=== PATIENT | female | born 1930 | race Two or more races ===

== ENCOUNTER 2016-11-02 09:24 | Emergency (ER) | payer MEDICAID ==
[~2016-11-02] VITALS: Ht 154.9 cm; Wt 59.0 kg
[~2016-11-02 09:24] MED LIST: AMLODIPINE BES2.5 MG ORAL; ANTIVERT25 MG ORAL; ASPIR 8181 MG ORAL; GLIMEPIRIDE1 MG ORAL; GLIPIZIDE10 MG PO; GLIPIZIDE5 MG ORAL; GLUCOPHAGE1000 MG ORAL; LEVAQUIN750 MG ORAL; LISINOPRIL5 MG ORAL; NORCO 5-325 TA1 EACH ORAL; OMEPRAZOLE20 M2 ORAL; RANITIDINE HCL150 MG ORAL; SIMVASTATIN20 MG ORAL; UNOBMED; ZOFRAN4 M1 ORAL
[2016-11-02 10:30] VITALS: BP 127/55
[2016-11-02 10:38] LABS: BASOPHILS % (AUTO) 0.6 % (0.0-2.0); EOSINOPHILS % (AUTO) 0.7 % (0.0-3.0); MEAN CORPUSCULAR HEMOGLOBIN 28.8 PG (27.0-31.0); MEAN CORPUSCULAR HGB CONC 32.6 G/DL (32.0-36.0); MEAN CORPUSCULAR VOLUME 88 FL (80-99); MEAN PLATELET VOLUME 9.9 FL (6.5-10.1); MONOCYTES % (AUTO) 9.2 % (1.0-10.0); NEUTROPHILS % (AUTO) 54.5 % (45.0-75.0); PLATELET COUNT 156 K/UL (150-450); RED BLOOD COUNT 5.22 M/UL (4.20-5.40); RED CELL DISTRIBUTION WIDTH 12.4 % (11.6-14.8); WHITE BLOOD COUNT 7.2 K/UL (4.8-10.8)
[2016-11-02 11:05] LABS: TROPONIN I < 0.30 ng/mL (<=0.30)
[2016-11-02 11:10] LABS: ALANINE AMINOTRANSFERASE 25 U/L (3-33); ALBUMIN/GLOBULIN RATIO 1.4 (1.0-2.7); ANION GAP 17 (5-15); ASPARTATE AMINO TRANSFERASE 28 U/L (5-40); CALCIUM 9.5 mg/dL (8.6-10.2); CARBON DIOXIDE 23 mEQ/L (20-30); CHLORIDE 101 mEQ/L (98-107); CREATININE 0.8 mg/dL (0.5-0.9); HEMOLYSIS 20; MAGNESIUM 1.8 mg/dL (1.7-2.5); POTASSIUM 4.1 mEQ/L (3.4-4.9); SODIUM 141 mEQ/L (135-145); TOTAL PROTEIN 7.1 g/dL (6.6-8.7)
[2016-11-02 11:21] LABS: CKMB 1.8 ng/mL (< 3.8)
[2016-11-02 11:30] VITALS: BP 139/55
[2016-11-02 12:00] VITALS: BP 127/54
[2016-11-02 12:10] LABS: APPEARANCE,URINE CLEAR; KETONES,URINE NEGATIVE (NEGATIVE); LEUKOCYTE ESTERASE ,URINE 1+ (NEGATIVE); NITRITE,URINE NEGATIVE (NEGATIVE); PH,URINE 6 (4.5-8.0); PROTEIN,URINE NEGATIVE (NEGATIVE); UROBILINOGEN,URINE NORMAL MG/DL (0.0-1.0)
--- NOTE | 2016-11-02 12:18 | Diagnostic Imaging Report ---
Indication: Chest Pain Comparison: None A single view chest radiograph was obtained. Findings: Lungs are clear. Heart is mildly enlarged. Aorta is ectatic and calcified. Bones are osteopenic. Impression: No acute disease
[2016-11-02 12:21] LABS: BACTERIA,URINE OCCASIONAL /HPF; RBC,URINE 0-2 /HPF (0 - 2); SQUAMOUS EPITHELIAL CELL,UR FEW /LPF (NONE/OCC)
[2016-11-02 13:00] VITALS: BP 146/54
[2016-11-02] MEDS ORDERED: Lidocaine 1% MPF 10mg/ml 5ml IM ONE (14:15)
--- NOTE | 2016-11-02 14:55 | Emergency Room Report ---
History of Present Illness General Chief Complaint: General Complaint Source: Patient Present Illness HPI This patient is accompanied by her son. She complains of nausea vomiting and diarrhea for the past day. She also feels lightheaded. She also complains of pain around her left great toe-nail. She denies abdominal pain. She denies chest pain or shortness of breath. She denies fall. She denies dysuria or hematuria. She has no other complaints. Allergies: Coded Allergies: No Known Allergies (Unverified , 06/24/13) Patient History Past Medical History: see triage record, DM, HTN, other - HLP Social History: Denies: alcohol use, drug use, smoking Reviewed Nursing Documentation: PMH: Agreed, PSxH: Agreed Nursing Documentation-PMH Past Medical History: No History, Except For Hx Cardiac Problems: Yes Hx Hypertension: Yes Hx Diabetes: Yes Hx Cancer: No Hx Gastrointestinal Problems: No Hx Neurological Problems: No Hx Peripheral Neuropathy: Yes - Diabetic Review of Systems All Other Systems: negative except mentioned in HPI Physical Exam Vital Signs Date Time Temp Pulse Resp B/P Pulse Ox O2 Delivery O2 Flow Rate FiO2 11/02/16 09:37 98.1 66 18 160/64 96 Room Air Sp02 EP Interpretation: reviewed, normal General Appearance: no apparent distress, alert, GCS 15, non-toxic Head: normocephalic, atraumatic Eyes: bilateral eye PERRL, bilateral eye normal inspection ENT: hearing grossly normal, normal pharynx, no angioedema, normal voice Neck: full range of motion, supple/symm/no masses Respiratory: chest non-tender, lungs clear, normal breath sounds, speaking full sentences Cardiovascular #1: regular rate, rhythm, no edema Gastrointestinal: normal bowel sounds, non tender, soft, non-distended, no guarding, no rebound Rectal: deferred Musculoskeletal: back normal, normal range of motion, other - Mild erythema around the left great toenail medially and proximally. There is a small amount of fluctuance. The area is tender to palpation. Neurologic: alert, oriented x3, responsive, motor strength/tone normal, sensory intact, speech normal Psychiatric: judgement/insight normal, memory normal, mood/affect normal, no suicidal/homicidal ideation Skin: normal color, no rash, warm/dry, well hydrated Procedures Additional Procedure Procedure Narrative Left great toenail partial removal: A digital block was performed with 1% lidocaine. The medial one fourth of the toenail was removed in the typical fashion. There was some purulence expressed from the medial uncal fold. The wound was dressed. There were no complications. Medical Decision Making Diagnostic Impression: Primary Impression: Nausea & vomiting Additional Impressions: Diarrhea Ingrown toenail Paronychia ER Course This patient presents with nausea, vomiting and diarrhea consistent with a gastroenteritis. The patient had no episodes here in the emergency department. She also found to have an in grown toe nail and a left great toe with an associated paronychia. See my procedure note. I will also place the patient on a course of antibiotics. I will give the patient Zofran for nausea. At this time, the patient is well appearing and nontoxic. She's had no nausea, vomiting or diarrhea during her ED course. Patient is accompanied by her son who can watch her closely. At this time I did not identify an emergency medical condition. The patient's given return precautions and followup instructions. Labs Test 11/02/16 10:05 11/02/16 11:30 White Blood Count 7.2 K/UL (4.8-10.8) Red Blood Count 5.22 M/UL (4.20-5.40) Hemoglobin 15.1 G/DL (12.0-16.0) Hematocrit 46.2 % (37.0-47.0) Mean Corpuscular Volume 88 FL (80-99) Mean Corpuscular Hemoglobin 28.8 PG (27.0-31.0) Mean Corpuscular Hemoglobin Concent 32.6 G/DL (32.0-36.0) Red Cell Distribution Width 12.4 % (11.6-14.8) Platelet Count 156 K/UL (150-450) Mean Platelet Volume 9.9 FL (6.5-10.1) Neutrophils (%) (Auto) 54.5 % (45.0-75.0) Lymphocytes (%) (Auto) 35.0 % (20.0-45.0) Monocytes (%) (Auto) 9.2 % (1.0-10.0) Eosinophils (%) (Auto) 0.7 % (0.0-3.0) Basophils (%) (Auto) 0.6 % (0.0-2.0) Sodium Level 141 mEQ/L (135-145) Potassium Level 4.1 mEQ/L (3.4-4.9) Chloride Level 101 mEQ/L (98-107) Carbon Dioxide Level 23 mEQ/L (20-30) Anion Gap 17 (5-15) Blood Urea Nitrogen 16 mg/dL (7-23) Creatinine 0.8 mg/dL (0.5-0.9) Estimat Glomerular Filtration Rate mL/min (>60) Glucose Level 223 mg/dL (74-106) Lactic Acid Level 1.40 mmol/L (0.66-2.22) Calcium Level 9.5 mg/dL (8.6-10.2) Magnesium Level 1.8 mg/dL (1.7-2.5) Total Bilirubin 0.5 mg/dL (0.0-1.2) Aspartate Amino Transf (AST/SGOT) 28 U/L (5-40) Alanine Aminotransferase (ALT/SGPT) 25 U/L (3-33) Alkaline Phosphatase 83 U/L (35-104) Total Creatine Kinase 79 U/L (26-140) Creatine Kinase MB 1.8 ng/mL (< 3.8) Creatine Kinase MB Relative Index 2.2 Troponin I < 0.30 ng/mL (<=0.30) Total Protein 7.1 g/dL (6.6-8.7) Albumin 4.2 g/dL (3.5-5.2) Globulin 2.9 g/dL Albumin/Globulin Ratio 1.4 (1.0-2.7) Urine Color Pale yellow Urine Appearance Clear Urine pH 6 (4.5-8.0) Urine Specific [place] 1.005 (1.005-1.035) Urine Protein Negative (NEGATIVE) Urine Glucose (UA) 2+ (NEGATIVE) Urine Ketones Negative (NEGATIVE) Urine Occult Blood Negative (NEGATIVE) Urine Nitrite Negative (NEGATIVE) Urine Bilirubin Negative (NEGATIVE) Urine Urobilinogen Normal MG/DL (0.0-1.0) Urine Leukocyte Esterase 1+ (NEGATIVE) Urine RBC 0-2 /HPF (0 - 2) Urine WBC 2-4 /HPF (0 - 2) Urine Squamous Epithelial Cells Few /LPF (NONE/OCC) Urine Bacteria Occasional /HPF (NONE) EKG Diagnostic Results Rate: normal Rhythm: NSR ST Segments: no acute changes Rhythm Strip Diag. Results EP Interpretation: yes Rate: 60's Rhythm: NSR, no PVC's, no ectopy Last Vital Signs Date Time Temp Pulse Resp B/P Pulse Ox O2 Delivery O2 Flow Rate FiO2 11/02/16 13:00 64 16 146/54 96 11/02/16 12:00 Room Air 11/02/16 09:37 98.1 Status: improved Disposition: HOME, SELF-CARE Condition: Improved Referrals: NON PHYSICIAN (PCP) ANNMARIE MARINELLI D.O. November 02, 2016 14:55
[2016-11-02] MEDS ORDERED: KEFLEX500 MG ORAL (14:56)
[2016-11-02] MEDS ORDERED: ZOFRAN ODT4 MG ORAL (14:56)
[2016-11-02 15:17] VITALS: BP 144/90
== END 2016-11-02 15:19 | disposition home or self-care (01) ==
LOC: EMR 10:23
DX: R11.2 Nausea with vomiting, unspecified (principal); R19.7 Diarrhea, unspecified; L60.0 Ingrowing nail; L03.032 Cellulitis of left toe; R42 Dizziness and giddiness; M79.675 Pain in left toe(s); I10 Essential (primary) hypertension; E78.5 Hyperlipidemia, unspecified; E11.42 Type 2 diabetes mellitus with diabetic polyneuropathy
CPT/HCPCS: 11750; 36415; 71010; 80053; 81003; 82550; 82553; 83605; 83735; 84484; 85025; 87040; 93005; 96372; 96374; 99284; Z7502

== ENCOUNTER 2017-01-11 10:44 | Inpatient (IN) | payer MEDICAID ==
[~2017-01-11] VITALS: Ht 152.4 cm; Wt 50.3 kg
[~2017-01-11 10:44] MED LIST changes: +KEFLEX500 MG ORAL; +ZOFRAN ODT4 MG ORAL
[2017-01-11 12:17] LABS: BASOPHILS % (AUTO) 1.1 % (0.0-2.0); EOSINOPHILS % (AUTO) 1.4 % (0.0-3.0); LYMPHOCYTES % (AUTO) 38.2 % (20.0-45.0); MEAN CORPUSCULAR HEMOGLOBIN 29.8 PG (27.0-31.0); MEAN CORPUSCULAR HGB CONC 32.5 G/DL (32.0-36.0); MEAN CORPUSCULAR VOLUME 92 FL (80-99); MEAN PLATELET VOLUME 8.9 FL (6.5-10.1); MONOCYTES % (AUTO) 8.8 % (1.0-10.0); NEUTROPHILS % (AUTO) 50.5 % (45.0-75.0); PLATELET COUNT 187 K/UL (150-450); RED BLOOD COUNT 5.16 M/UL (4.20-5.40); RED CELL DISTRIBUTION WIDTH 12.3 % (11.6-14.8); WHITE BLOOD COUNT 8.1 K/UL (4.8-10.8)
--- NOTE | 2017-01-11 12:19 | Diagnostic Imaging Report ---
Indication: SOB Technique: One view of the chest Comparison: 11/02/2016 Findings: There are bilateral basilar atelectatic changes. Lungs and pleural spaces otherwise clear. Heart size is normal. Aorta is calcified. There is no significant interim change Impression: No acute process
[2017-01-11 12:30] LABS: TROPONIN I < 0.30 ng/mL (<=0.30)
[2017-01-11 12:31] LABS: ALANINE AMINOTRANSFERASE 18 U/L (3-33); ALBUMIN/GLOBULIN RATIO 1.5 (1.0-2.7); ANION GAP 13 (5-15); ASPARTATE AMINO TRANSFERASE 19 U/L (5-40); CALCIUM 9.7 mg/dL (8.6-10.2); CARBON DIOXIDE 20 mEQ/L (20-30); CHLORIDE 101 mEQ/L (98-107); CREATININE 1.1 mg/dL (0.5-0.9); HEMOLYSIS 7; LIPASE 48 U/L (< 60); POTASSIUM 4.3 mEQ/L (3.4-4.9); SODIUM 134 mEQ/L (135-145); TOTAL PROTEIN 7.5 g/dL (6.6-8.7)
[2017-01-11 12:34] LABS: REFLEX LACTIC ACID YES OR NO YES
[2017-01-11 12:36] LABS: APPEARANCE,URINE CLEAR; KETONES,URINE NEGATIVE (NEGATIVE); LEUKOCYTE ESTERASE ,URINE NEGATIVE (NEGATIVE); NITRITE,URINE NEGATIVE (NEGATIVE); PH,URINE 6 (4.5-8.0); PROTEIN,URINE NEGATIVE (NEGATIVE); UROBILINOGEN,URINE NORMAL MG/DL (0.0-1.0)
[2017-01-11 12:42] LABS: CKMB 2.8 ng/mL (< 3.8)
[2017-01-11 12:44] VITALS: BP 138/56
[2017-01-11] MEDS ORDERED: Ampicillin/Sulbactam Sod 3 GM in NS 110 ML IVPB ONE (12:45)
--- NOTE | 2017-01-11 12:54 | Emergency Room Report ---
History of Present Illness General Chief Complaint: General Complaint Source: Patient, Family Member Present Illness HPI Patient is 86-year-old female who presented after increased headache in generalized body aches. This reported having increased chest discomfort. She reported having gradual onset of symptoms. Patient noted to have recently been treated for a urinary tract infection with oral Bactrim. She reports having increased vulvar itching and pain. She denies any discharge. She reports having prior history of diabetes. Allergies: Coded Allergies: No Known Allergies (Unverified , 06/24/13) Patient History Past Medical History: see triage record Now: No Reviewed Nursing Documentation: PMH: Agreed, PSxH: Agreed Nursing Documentation-PMH Past Medical History: No History, Except For Hx Cardiac Problems: Yes Hx Hypertension: Yes Hx Diabetes: Yes Hx Cancer: No Hx Gastrointestinal Problems: No Hx Neurological Problems: No Hx Peripheral Neuropathy: Yes - Diabetic Review of Systems All Other Systems: negative except mentioned in HPI Physical Exam Vital Signs Date Time Temp Pulse Resp B/P Pulse Ox O2 Delivery O2 Flow Rate FiO2 01/11/17 10:46 98.2 79 18 134/72 99 Room Air Sp02 EP Interpretation: reviewed, normal General Appearance: normal inspection, well appearing, no apparent distress, alert, GCS 15 Head: atraumatic ENT: normal ENT inspection, hearing grossly normal, normal voice Neck: normal inspection, full range of motion, supple, no bony tend Respiratory: normal inspection, lungs clear, normal breath sounds, no respiratory distress, no retraction, no wheezing Cardiovascular #1: regular rate, rhythm, no edema Gastrointestinal: normal inspection, normal bowel sounds, non tender, soft, no guarding, no hernia Genitourinary: no CVA tenderness, ext genitalia/vag normal - vulvar atrophy, slight erythema, no exudate Musculoskeletal: normal inspection, back normal, normal range of motion Neurologic: normal inspection, alert, responsive, speech normal Psychiatric: normal inspection, judgement/insight normal, mood/affect normal Skin: normal inspection, normal color, no rash Medical Decision Making Diagnostic Impression: Primary Impression: ACS (acute coronary syndrome) Additional Impressions: Vaginitis Lactic acidosis ER Course Patient presented for dysuria. Differential diagnosis included was not limited to appendicitis, urinary tract infection, pelvic inflammatory disease, urethritis, herpes among others.Because of complexity of patient's case laboratory testing were ordered.Laboratory testing was notable for elevated lactic acid level.Dr. Bonilla was contacted for inpatient management due to complexity of medical condition. Laboratory Tests Test 01/11/17 10:51 01/11/17 11:40 01/11/17 13:05 01/12/17 08:15 Urine Color Pale yellow Urine Appearance Clear Urine pH 6 (4.5-8.0) Urine Specific [place] 1.020 (1.005-1.035) Urine Protein Negative (NEGATIVE) Urine Glucose (UA) 4+ (NEGATIVE) H Urine Ketones Negative (NEGATIVE) Urine Occult Blood Negative (NEGATIVE) Urine Nitrite Negative (NEGATIVE) Urine Bilirubin Negative (NEGATIVE) Urine Urobilinogen Normal MG/DL (0.0-1.0) Urine Leukocyte Esterase Negative (NEGATIVE) White Blood Count 8.1 K/UL (4.8-10.8) 7.0 K/UL (4.8-10.8) Red Blood Count 5.16 M/UL (4.20-5.40) 4.80 M/UL (4.20-5.40) Hemoglobin 15.4 G/DL (12.0-16.0) 14.8 G/DL (12.0-16.0) Hematocrit 47.4 % (37.0-47.0) H 43.8 % (37.0-47.0) Mean Corpuscular Volume 92 FL (80-99) 91 FL (80-99) Mean Corpuscular Hemoglobin 29.8 PG (27.0-31.0) 30.9 PG (27.0-31.0) Mean Corpuscular Hemoglobin Concent 32.5 G/DL (32.0-36.0) 33.8 G/DL (32.0-36.0) Red Cell Distribution Width 12.3 % (11.6-14.8) 12.7 % (11.6-14.8) Platelet Count 187 K/UL (150-450) 169 K/UL (150-450) Mean Platelet Volume 8.9 FL (6.5-10.1) 8.4 FL (6.5-10.1) Neutrophils (%) (Auto) 50.5 % (45.0-75.0) 35.6 % (45.0-75.0) L Lymphocytes (%) (Auto) 38.2 % (20.0-45.0) 49.2 % (20.0-45.0) H Monocytes (%) (Auto) 8.8 % (1.0-10.0) 10.6 % (1.0-10.0) H Eosinophils (%) (Auto) 1.4 % (0.0-3.0) 3.5 % (0.0-3.0) H Basophils (%) (Auto) 1.1 % (0.0-2.0) 1.1 % (0.0-2.0) Sodium Level 134 mEQ/L (135-145) L Potassium Level 4.3 mEQ/L (3.4-4.9) Chloride Level 101 mEQ/L (98-107) Carbon Dioxide Level 20 mEQ/L (20-30) Anion Gap 13 (5-15) Blood Urea Nitrogen 20 mg/dL (7-23) Creatinine 1.1 mg/dL (0.5-0.9) H Estimate Glomerular Filtration Rate mL/min (>60) Glucose Level 334 mg/dL (74-106) H Lactic Acid Level 2.30 mmol/L (0.66-2.22) H 2.10 mmol/L (0.66-2.22) Calcium Level 9.7 mg/dL (8.6-10.2) Total Bilirubin 0.4 mg/dL (0.0-1.2) Aspartate Amino Transferase (AST) 19 U/L (5-40) Alanine Aminotransferase (ALT) 18 U/L (3-33) Alkaline Phosphatase 89 U/L (35-104) Total Creatine Kinase 96 U/L (26-140) Creatine Kinase MB 2.8 ng/mL (< 3.8) Creatine Kinase MB Relative Index 2.9 Troponin I < 0.30 ng/mL (<=0.30) Pro-B-Type Natriuretic Peptide 142 pg/mL (0-450) Total Protein 7.5 g/dL (6.6-8.7) Albumin 4.5 g/dL (3.5-5.2) Globulin 3.0 g/dL Albumin/Globulin Ratio 1.5 (1.0-2.7) Lipase 48 U/L (< 60) Prothrombin Time 10.3 SEC (9.30-11.50) Prothrombin Time INR 1.0 (0.9-1.1) PTT 30 SEC (23-33) C-Reactive Protein, Quantitative < 0.3 mg/dL (< 0.5) Triglycerides Level 265 mg/dL (< 150) H Cholesterol Level 194 mg/dL (< 200) LDL Cholesterol 106 mg/dL (60-99) H HDL Cholesterol 35 mg/dL (> 60) Cholesterol/HDL Ratio 5.5 (3.3-4.4) H Thyroid Stimulating Hormone (TSH) 1.950 uIU/mL (0.300-4.500) Last Vital Signs Date Time Temp Pulse Resp B/P Pulse Ox O2 Delivery O2 Flow Rate FiO2 01/11/17 12:44 98.2 75 19 138/56 98 Room Air Status: unchanged Disposition: ADMITTED INPATIENT Condition: Serious Scripts Sitagliptin (Januvia) 50 Mg Tablet 50 MG ORAL DAILY for 30 Days, TAB Prov: KELSEY BONILLA 01/12/17 Referrals: NOT CHOSEN IPA/,REFERRING (PCP) Michael Soliz Jan 11, 2017 12:54
[2017-01-11] MEDS ORDERED: Unasyn 3gm Inj ONE (12:55)
[2017-01-11] MEDS ORDERED: Miralax 17gm pkt ORAL PRN (14:45)
[2017-01-11] MEDS ORDERED: Enalaprilat 2.5mg/2ml Inj IV PRN (14:45)
[2017-01-11] MEDS ORDERED: Nitroglycerin Subl 0.4mg tab (Bottle Of 25) SL PRN (14:45)
[2017-01-11] MEDS ORDERED: DuoNeb 0.5-3(2.5)mg/3ml neb HHN PRN (14:45)
[2017-01-11] MEDS ORDERED: Ketorolac 30mg Inj IV PRN (14:45)
[2017-01-11] MEDS ORDERED: Diltiazem 25mg/5ml IV PRN (14:45)
[2017-01-11] MEDS ORDERED: Morphine Sulfate 2mg/ml Inj IVP PRN (14:45)
[2017-01-11] MEDS ORDERED: UNOBMED (14:58)
[2017-01-11 15:06] VITALS: BP 155/49
[2017-01-11] MEDS: Aspirin Baby 81mg ORAL SCH (15:56)
[2017-01-11 17:00] VITALS: BP 115/40
[2017-01-11] MEDS ORDERED: cefTRIAXone 1 GM in NS 55 ML IVPB SCH (18:00)
[2017-01-11 19:21] VITALS: BP 140/41
[2017-01-11 20:00] VITALS: BP 131/62
[2017-01-11] MEDS: NovoLOG Insulin Flexpen SUBQ SCH (21:08)
[2017-01-11] MEDS: Heparin 5000 units/ml inj SUBQ SCH (22:01)
[2017-01-11 23:56] VITALS: BP 124/53
[2017-01-12 03:58] VITALS: BP 123/52
[2017-01-12] MEDS: Heparin 5000 units/ml inj SUBQ SCH (06:23)
[2017-01-12] MEDS: NovoLOG Insulin Flexpen SUBQ SCH ×2 (06:24→11:59)
[2017-01-12 08:00] VITALS: BP 132/68
[2017-01-12] MEDS: Aspirin Baby 81mg ORAL SCH (08:46)
[2017-01-12 08:50] LABS: BASOPHILS % (AUTO) 1.1 % (0.0-2.0); EOSINOPHILS % (AUTO) 3.5 % (0.0-3.0); LYMPHOCYTES % (AUTO) 49.2 % (20.0-45.0); MEAN CORPUSCULAR HEMOGLOBIN 30.9 PG (27.0-31.0); MEAN CORPUSCULAR HGB CONC 33.8 G/DL (32.0-36.0); MEAN CORPUSCULAR VOLUME 91 FL (80-99); MEAN PLATELET VOLUME 8.4 FL (6.5-10.1); MONOCYTES % (AUTO) 10.6 % (1.0-10.0); NEUTROPHILS % (AUTO) 35.6 % (45.0-75.0); PLATELET COUNT 169 K/UL (150-450); RED CELL DISTRIBUTION WIDTH 12.7 % (11.6-14.8)
[2017-01-12 08:55] LABS: CHOLESTEROL 194 mg/dL (< 200); CHOLESTEROL/HDL RATIO 5.5 (3.3-4.4); CRP QUANT < 0.3 mg/dL (< 0.5); HEMOLYSIS 8; LDL CHOLESTEROL (CALC.) 106 mg/dL (60-99)
[2017-01-12] MEDS ORDERED: Aspirin EC 81mg tab ORAL SCH (09:00)
[2017-01-12] MEDS ORDERED: Lisinopril 10mg tab ORAL SCH (09:00)
[2017-01-12 09:36] LABS: PROTHROMBIN TIME 10.3 SEC (9.30-11.50)
[2017-01-12 12:00] VITALS: BP 108/52
[2017-01-12] MEDS ORDERED: JANUVIA50 MG ORAL (13:11)
--- NOTE | 2017-01-12 13:17 | History and Physical ---
History of Present Illness General Date patient seen: Jan 12, 2017 Reason for Hospitalization: General Complaint Present Illness HPI 86-year-old female with hx of DM, HTN presented after increased headache in generalized body aches. She reported having gradual onset of symptoms. She reports having increased vulvar itching and pain. She denies any discharge. she had a severe headache and contributed it to her high blood pressure. Allergies: Coded Allergies: No Known Allergies (Unverified , 06/24/13) Medication History Scheduled Aspirin* (Aspir 81*), 81 MG ORAL DAILY, (Reported) Cephalexin* (Keflex*), 500 MG ORAL Q6H Glimepiride* (Glimepiride*), 2 MG ORAL DAILY, (Reported) Glipizide (Glipizide), 10 MG PO ACBREAKFAST, (Reported) Lisinopril (Lisinopril*), 10 MG ORAL DAILY, (Reported) Scheduled PRN Ondansetron Odt* (Zofran Odt*), 4 MG ORAL Q6H PRN for Nausea & Vomiting Miscellaneous Medications Unable to Obtain Medications (Unable To Obtain Meds), (Reported) Patient History Healthcare decision maker Resuscitation status Full Code Advanced Directive on File Past Medical/Surgical History Past Medical/Surgical History: (1) Diabetes mellitus (2) HTN (hypertension) Review of Systems Constitutional: Reports: no symptoms Genitourinary: Reports: dysuria, other - vaginal itching All Other Systems: negative except mentioned in HPI Physical Exam General Appearance: cachetic Lines, tubes and drains: peripheral, central line HEENT: normocephalic, anicteric Neck: non-tender, normal alignment Respiratory/Chest: chest wall non-tender, lungs clear Breasts: no masses Cardiovascular/Chest: normal rate Abdomen: normal bowel sounds, non tender Genitourinary/Rectal: normal genital exam, normal prostate exam Extremities: normal range of motion Last 24 Hour Vital Signs Date Time Temp Pulse Resp B/P Pulse Ox O2 Delivery O2 Flow Rate FiO2 01/12/17 12:00 97.8 60 21 108/52 95 Nasal Cannula 2.0 01/12/17 09:17 97.7 01/12/17 08:48 132/68 01/12/17 08:00 68 01/12/17 08:00 97.7 77 20 132/68 93 Room Air 01/12/17 04:00 87 01/12/17 03:58 98.6 68 19 123/52 95 Room Air 01/12/17 00:00 77 01/11/17 23:56 98.5 72 18 124/53 98 Room Air 01/11/17 22:01 78 01/11/17 20:00 98.2 66 19 131/62 98 Room Air 01/11/17 19:21 97.3 60 18 140/41 Room Air 01/11/17 19:12 69 01/11/17 18:34 76 19 149/63 97 Room Air 01/11/17 17:00 62 19 115/40 97 Room Air 01/11/17 15:06 98.1 65 18 155/49 97 Room Air Intake and Output 01/11/17 01/12/17 19:00 07:00 Intake Total 55 ml Balance 55 ml Intake IV Total 55 ml # Voids 1 3 # Bowel Movements 1 Laboratory Tests Test 01/12/17 08:15 White Blood Count 7.0 K/UL (4.8-10.8) Red Blood Count 4.80 M/UL (4.20-5.40) Hemoglobin 14.8 G/DL (12.0-16.0) Hematocrit 43.8 % (37.0-47.0) Mean Corpuscular Volume 91 FL (80-99) Mean Corpuscular Hemoglobin 30.9 PG (27.0-31.0) Mean Corpuscular Hemoglobin Concent 33.8 G/DL (32.0-36.0) Red Cell Distribution Width 12.7 % (11.6-14.8) Platelet Count 169 K/UL (150-450) Mean Platelet Volume 8.4 FL (6.5-10.1) Neutrophils (%) (Auto) 35.6 % (45.0-75.0) L Lymphocytes (%) (Auto) 49.2 % (20.0-45.0) H Monocytes (%) (Auto) 10.6 % (1.0-10.0) H Eosinophils (%) (Auto) 3.5 % (0.0-3.0) H Basophils (%) (Auto) 1.1 % (0.0-2.0) Prothrombin Time 10.3 SEC (9.30-11.50) Prothromb Time International Ratio 1.0 (0.9-1.1) Activated Partial Thromboplast Time 30 SEC (23-33) C-Reactive Protein, Quantitative < 0.3 mg/dL (< 0.5) Triglycerides Level 265 mg/dL (< 150) H Cholesterol Level 194 mg/dL (< 200) LDL Cholesterol 106 mg/dL (60-99) H HDL Cholesterol 35 mg/dL (> 60) Cholesterol/HDL Ratio 5.5 (3.3-4.4) H Thyroid Stimulating Hormone (TSH) 1.950 uIU/mL (0.300-4.500) Height (Feet): 5 Height (Inches): 0.00 Weight (Pounds): 111 Medications Current Medications Medications (Trade) Dose Ordered Sig/Mickey Route PRN Reason Start Time Stop Time Status Last Admin Dose Admin Albuterol/ Ipratropium (DuoNeb 0.5-3(2.5)mg/3ml) 3 ml Q4H PRN HHN Shortness of Breath 01/11/17 14:45 01/16/17 14:44 Aspirin (ASA) 162 mg DAILY ORAL 01/11/17 16:00 02/10/17 15:59 01/12/17 08:46 Ceftriaxone Sodium/Sodium Chloride (Rocephin/Sodium Chloride) 55 ml @ 110 mls/hr Q24H IVPB 01/11/17 18:00 01/18/17 17:59 01/11/17 21:04 Dextrose (Dextrose 50%) STAT PRN IV Hypoglycemia 01/11/17 14:45 02/10/17 14:44 Diltiazem HCl (Cardizem) 10 mg Q1H PRN IV heart rate more than 120, 01/11/17 14:45 02/10/17 14:44 Enalaprilat (Vasotec) 2.5 mg Q6H PRN IV sbp more than 160 01/11/17 14:45 02/10/17 14:44 Heparin Sodium (Porcine) 5000 units 5,000 units EVERY 8 HOURS SUBQ 01/11/17 22:00 02/10/17 21:59 01/12/17 06:23 Insulin Aspart (NovoLOG) BEFORE MEALS AND HS SUBQ 01/11/17 21:00 02/10/17 20:59 01/12/17 11:59 Ketorolac Tromethamine (Toradol 30mg) 30 mg Q6H PRN IV moderate pain ( 4-6) 01/11/17 14:45 01/16/17 14:44 01/12/17 08:47 Lisinopril (Zestril) 10 mg DAILY ORAL 01/12/17 09:00 02/11/17 08:59 01/12/17 08:48 Morphine Sulfate (Morphine Sulfate) 2 mg Q4H PRN IVP severe Pain (Pain Scale 7-10) 01/11/17 14:45 01/18/17 14:44 Nitroglycerin (Ntg) 0.4 mg Q5M PRN SL Prn Chest Pain 01/11/17 14:45 02/10/17 14:44 Ondansetron HCl (Zofran) 4 mg Q6H PRN IVP Nausea & Vomiting 01/11/17 14:45 02/10/17 14:44 Pantoprazole (Protonix) 40 mg DAILY ORAL 01/12/17 09:00 02/11/17 08:59 01/12/17 08:46 Polyethylene Glycol (Miralax) 17 gm DAILYPRN PRN ORAL Constipation 01/11/17 14:45 02/10/17 14:44 Temazepam (Restoril) 15 mg HSPRN PRN ORAL Insomnia 01/11/17 14:45 01/18/17 14:44 Assessment/Plan Problem List: (1) HTN (hypertension) ICD Codes: I10 - HTN (hypertension) SNOMED: 26746257 (2) Vaginitis ICD Codes: N76.0 - Acute vaginitis SNOMED: 38762210 (3) Headache ICD Codes: R51 - Headache SNOMED: 59885276 (4) Diabetes mellitus ICD Codes: E11.9 - Diabetes mellitus SNOMED: 47862249 (5) Encounter for generalized patient complaints ICD Codes: Z00.8 - Encounter for other general examination SNOMED: 237809553 Assessment/Plan bp is better add justyn Miconozole vaginal applicator sliding scale KELSEY GIL Jan 12, 2017 13:17
[2017-01-12] MEDS ORDERED: Pneumococcal Vaccine 25mcg/0.5ml IM ONE (13:45)
[2017-01-12] MEDS ORDERED: NS 275ml ONE (14:19)
[2017-01-12] MEDS ORDERED: Tubing IV Secondary IV ONE (14:19)
[2017-01-12] MEDS ORDERED: Miconazole Vag Cr 45gm Tube VAGIN SCH (21:00)
[2017-01-15] MEDS ORDERED: MICONAZOLE 324 GM VG (11:00)
--- NOTE | 2017-01-15 11:01 | Discharge Summary ---
Discharge Summary Hospital Course Date of Admission Jan 11, 2017 at 13:58 Date of Discharge Jan 12, 2017 at 14:20 Admitting Diagnosis acs HPI Michael Ramires is a 86 year old female who was admitted on Jan 11, 2017 at 13:58 for Acute Coronary Syndrome Hospital Course dc summary #[id number] Discharge Medications New Medications: Miconazole Nitrate (Miconazole 3) 24 Gm Cmb.pf.crm 24 GM VG DAILY for 3 Days, #1 TUBE apply at HS for 3 days Sitagliptin (Januvia) 50 Mg Tablet 50 MG ORAL DAILY for 30 Days, TAB Continued Medications: Aspirin* (Aspir 81*) 81 Mg Tablet.dr 81 MG ORAL DAILY, TAB Glimepiride* (Glimepiride*) 1 Mg Tablet 2 MG ORAL DAILY, TAB Glipizide (Glipizide) 10 Mg Tablet 10 MG PO ACBREAKFAST, TAB Lisinopril (Lisinopril*) 5 Mg Tablet 10 MG ORAL DAILY, TAB Discharge Condition Upon Discharge: stable Discharge Disposition Patient was discharged to Home (01) Discharge Diagnoses: Discharge Instructions Discharge Instructions Special Instructions I have been assigned to complete a D/C Summary on this account. I was not involved in the patient management Lori Guerra NP ([place]) Jan 15, 2017 11:01
--- NOTE | 2017-01-15 23:16 | Discharge Summary 2 SIG ---
DATE OF ADMISSION: 01/11/2017 DATE OF DISCHARGE: 01/12/2017 BRIEF HOSPITAL COURSE: The patient is an 86-year-old female with a history of hypertension and diabetes, presented to emergency room with increased headache and generalized body aches. The patient also reported increased vulvar itching and pain in the area. She denied any discharge. She denied fever or chills. She also complained of severe headache, which she contributed to higher blood pressure. Blood pressure was initially slightly elevated in the emergency room. The patient was given her routine antihypertensive medication. Chest x-ray revealed no evidence of cardiopulmonary disease. Venous duplex of bilateral lower extremities was negative. Troponin was negative. Noted elevated lactic acid and recheck stable. The patient noted to have glucose of 334. The patient at home on Amaryl and glipizide. Januvia was added for better management of blood sugar. Lipid panel revealed elevated LDL of 106 and triglycerides of 265. The patient is on aspirin. The patient was recommended to low-fat low-cholesterol diabetic diet and check the lipid panel in three months. Urinalysis was negative. Headache was likely secondary to blood pressure. After blood pressure stabilized the headache stopped. The patient was started on miconazole vaginal cream, which to be continued upon discharge. Due to the rapid and unexpected improvement in patient's condition, the patient was discharged in one day. DISCHARGE DIAGNOSES: 1. Hypertension. 2. Diabetes. 3. Vaginitis. 4. Lactic acidosis. 5. Headache likely due to elevated hypertension. DISCHARGE MEDICATIONS: See medication reconciliation list. DISCHARGE INSTRUCTIONS: The patient was discharged home. Follow up with primary medical doctor. Stan Bonilla M.D. I have been assigned to dictate discharge summary on this account and I was not involved in the patient's management. Lori Apariciomohansic state hospitalReginald N.PNancy DR: PAMELA JOB#: [id number] CC:
== END 2017-01-12 14:20 | disposition home or self-care (01) | DRG 199 ==
LOC: EMR 11:11 → 2E 13:58 → EDBEDREQ 14:28 → 2E 19:49
DX: I10 Essential (primary) hypertension (principal); E87.2 Acidosis; N76.0 Acute vaginitis; E11.9 Type 2 diabetes mellitus without complications; R51 Headache; Z79.82 Long term (current) use of aspirin; Z79.84 Long term (current) use of oral hypoglycemic drugs
CPT/HCPCS: 36415; 71010; 80053; 80061; 81003; 82550; 82553; 82962; 83605; 83690; 83880; 84443; 84484; 85025; 85610; 85730; 86140; 87040; 93005; 93306; 93970; J1815

== ENCOUNTER 2017-09-01 10:18 | Emergency (ER) | payer MEDICAID ==
[~2017-09-01] VITALS: Ht 142.2 cm; Wt 46.7 kg
[~2017-09-01 10:18] MED LIST changes: +JANUVIA50 MG ORAL; +MICONAZOLE 324 GM VG
[2017-09-01 10:49] VITALS: BP 158/47
[2017-09-01] MEDS ORDERED: Meclizine 25mg tab ORAL STA (11:45)
[2017-09-01 12:37] LABS: EOSINOPHILS % (AUTO) 1.4 % (0.0-3.0); HEMATOCRIT 44.1 % (37.0-47.0); HEMOGLOBIN 14.8 G/DL (12.0-16.0); MEAN CORPUSCULAR VOLUME 89 FL (80-99); NEUTROPHILS % (AUTO) 52.5 % (45.0-75.0); PLATELET COUNT 144 K/UL (150-450); RED BLOOD COUNT 4.97 M/UL (4.20-5.40); RED CELL DISTRIBUTION WIDTH 12.4 % (11.6-14.8); WHITE BLOOD COUNT 6.6 K/UL (4.8-10.8)
[2017-09-01 13:00] LABS: ANION GAP 6 mmol/L (5-15); BLOOD UREA NITROGEN 22 mg/dL (7-18); CALCIUM 9.5 MG/DL (8.5-10.1); CARBON DIOXIDE 27 MMOL/L (21-32); CHLORIDE 104 MMOL/L (98-107); CREATININE 0.8 MG/DL (0.55-1.30); POTASSIUM 4.5 MMOL/L (3.5-5.1); SODIUM 137 MMOL/L (136-145)
[2017-09-01 13:05] LABS: ALANINE AMINOTRANSFERASE 23 U/L (12-78); ALBUMIN 3.1 G/DL (3.4-5.0); ALBUMIN/GLOBULIN RATIO 0.8 (1.0-2.7); ALKALINE PHOSPHATASE 128 U/L (46-116); ASPARTATE AMINO TRANSFERASE 18 U/L (15-37); BILIRUBIN,TOTAL 0.4 MG/DL (0.2-1.0)
[2017-09-01 13:15] VITALS: BP 109/64
--- NOTE | 2017-09-01 13:49 | Emergency Room Report ---
History of Present Illness General Chief Complaint: Generalized Weakness Source: Patient Present Illness HPI 87-year-old female comes with complaints of dizziness that is vague and mild and intermittent, and a pressure-like sensation in her head for the past 4 days as well as palpitations. The triage note reports she feels a chest heaviness, but she reports that she is not having a heaviness in her chest just feels a strong heart beating in her chest. Per heaviness in her head however. She reports is heaviness is like a pressure sensation. She denies headaches. She denies fevers, chills, numbness, tingling, weakness, slurred speech. Allergies: Coded Allergies: No Known Allergies (Unverified , 06/24/13) Patient History Past Medical History: see triage record Reviewed Nursing Documentation: PMH: Agreed, PSxH: Agreed Nursing Documentation-PMH Hx Cardiac Problems: Yes Hx Hypertension: Yes Hx Diabetes: Yes Hx Cancer: No Hx Gastrointestinal Problems: No Hx Neurological Problems: No Hx Peripheral Neuropathy: Yes - Diabetic Review of Systems All Other Systems: negative except mentioned in HPI Physical Exam Vital Signs Date Time Temp Pulse Resp B/P (MAP) Pulse Ox O2 Delivery O2 Flow Rate FiO2 09/01/17 10:31 98.0 67 14 93 Room Air 98.1 09/01/17 10:49 158/47 Sp02 EP Interpretation: reviewed, normal General Appearance: no apparent distress, alert, non-toxic Head: normocephalic Eyes: bilateral eye normal inspection, bilateral eye PERRL, bilateral eye EOMI ENT: normal ENT inspection, hearing grossly normal, normal pharynx, no angioedema, normal voice, moist mucus membranes Neck: normal inspection, full range of motion, supple, supple/symm/no masses Respiratory: chest non-tender, lungs clear, normal breath sounds, chest symmetrical, palpation of chest normal Cardiovascular #1: normal peripheral pulses, regular rate, rhythm Cardiovascular #2: 2+ radial (R), 2+ radial (L) Gastrointestinal: normal inspection, non tender, soft, no mass, no guarding, no rebound Rectal: deferred Genitourinary: normal inspection, no CVA tenderness Musculoskeletal: back normal, gait/station normal, normal range of motion, non- tender, no calf tenderness Neurologic: alert, oriented x3, responsive, global program director III-XII nml as tested, motor strength/tone normal, sensory intact, cerebellar normal, normal gait, speech normal Psychiatric: judgement/insight normal, memory normal, mood/affect normal, no suicidal/homicidal ideation Skin: normal color, no rash, warm/dry, normal turgor Lymphatic: no adenopathy Medical Decision Making Reaction to Intervention: Improved Diagnostic Impression: Primary Impression: Dizziness ER Course Patient with mild hypertension, which improved with meclizine, she's had a completely normal examination including [id number] and gait, she also has no nystagmus, and symptoms been going on for many days. I do not suspect posterior circulation infarct or insufficiency. Patient will be discharged with meclizine when necessary and follow-up with primary doctor diagnosis dizziness. EKG Diagnostic Results EKG Time: 11:58 EP Interpretation: No ST-T segment changes, no TWI Rhythm: NSR ST Segments: no acute changes ASA given to the pt in ED: No Rhythm Strip Diag. Results Rhythm Strip Time: 13:46 EP Interpretation: yes Rate: 70 Rhythm: NSR CT/MRI/US Diagnostic Results CT/MRI/US Diagnostic Results : Imaging Test Ordered: ct head Impression no acute findings, just generalized volume loss Last Vital Signs Date Time Temp Pulse Resp B/P (MAP) Pulse Ox O2 Delivery O2 Flow Rate FiO2 09/01/17 13:15 98.1 70 18 109/64 97 Room Air 98.1 Status: improved Disposition: HOME, SELF-CARE Condition: Improved PETER SHEPHERD M.D Sep 01, 2017 13:49
[2017-09-01] MEDS ORDERED: MECLIZINE HCL25 M1 ORAL (13:50)
[2017-09-01 13:52] VITALS: BP 109/64
--- NOTE | 2017-09-02 10:10 | Diagnostic Imaging Report ---
Indication: Dizziness Technique: Continuous helical CT scanning of the head was performed utilizing automated exposure control without intravenous contrast material. Axial and coronal reconstructions were obtained. Comparison: 03/26/2015 CT dose: Total DLP 1291 mGycm; CTDI vol 70.4 mGy Findings: There is no acute intracranial hemorrhage, mass effect or cortical edema. The ventricles, cisterns and sulci are prominent consistent with atrophy. Periventricular and subcortical hypoattenuation are seen, a nonspecific finding. The posterior fossa and fourth ventricle are unremarkable. Sellar and suprasellar regions are grossly unremarkable. Visualized mastoid air cells and paranasal sinuses are unremarkable. No focal lesions of the bony calvarium or soft tissues of the scalp are seen. Impression: No evidence of acute intracranial hemorrhage, mass effect or cortical edema. MRI may be obtained for more sensitive evaluation as clinically indicated. Atrophy and nonspecific periventricular and subcortical hypoattenuation suggestive of chronic ischemic microvascular changes. The CT scanner at [facility] is accredited by the [employer] and the scans are performed using protocols designed to limit radiation exposure to as low as reasonably achievable to attain images of sufficient resolution adequate for diagnostic evaluation.
--- NOTE | 2017-09-02 16:27 | Cardiology Report ---
APPROVED REPORT EKG Measurement Heart [id number] Sinus rhythm with frequent premature ventricular complexes Nonspecific ST abnormality Abnormal ECG
== END 2017-09-01 14:02 | disposition home or self-care (01) ==
LOC: EMR 11:30
DX: R42 Dizziness and giddiness (principal); E11.9 Type 2 diabetes mellitus without complications; I10 Essential (primary) hypertension
CPT/HCPCS: 36415; 70450; 80053; 84484; 85025; 93005; 99284

== ENCOUNTER 2017-12-04 16:15 | Emergency (ER) | payer MEDICAID ==
[~2017-12-04] VITALS: Ht 160 cm; Wt 52.2 kg
[~2017-12-04 16:15] MED LIST changes: +MECLIZINE HCL25 M1 ORAL
[2017-12-04 16:53] VITALS: BP 151/45
[2017-12-04 16:56] LABS: BASOPHILS % (AUTO) 1.7 % (0.0-2.0); HEMATOCRIT 45.4 % (37.0-47.0); HEMOGLOBIN 15.5 G/DL (12.0-16.0); LYMPHOCYTES % (AUTO) 54.3 % (20.0-45.0); MEAN CORPUSCULAR VOLUME 85 FL (80-99); MONOCYTES % (AUTO) 9.4 % (1.0-10.0); NEUTROPHILS % (AUTO) 32.7 % (45.0-75.0); PLATELET COUNT 165 K/UL (150-450); RED BLOOD COUNT 5.35 M/UL (4.20-5.40); RED CELL DISTRIBUTION WIDTH 12.6 % (11.6-14.8); WHITE BLOOD COUNT 8.5 K/UL (4.8-10.8)
[2017-12-04 17:06] LABS: ANION GAP 12 mmol/L (5-15); BLOOD UREA NITROGEN 23 mg/dL (7-18); CALCIUM 10.1 MG/DL (8.5-10.1); CARBON DIOXIDE 22 MMOL/L (21-32); CHLORIDE 101 MMOL/L (98-107); CREATININE 0.9 MG/DL (0.55-1.30); POTASSIUM 3.9 MMOL/L (3.5-5.1); SODIUM 135 MMOL/L (136-145)
[2017-12-04 17:09] LABS: ALANINE AMINOTRANSFERASE 23 U/L (12-78); ALBUMIN 3.8 G/DL (3.4-5.0); ALBUMIN/GLOBULIN RATIO 0.9 (1.0-2.7); ALKALINE PHOSPHATASE 156 U/L (46-116); ASPARTATE AMINO TRANSFERASE 14 U/L (15-37); BILIRUBIN,TOTAL 0.4 MG/DL (0.2-1.0)
--- NOTE | 2017-12-04 18:02 | Emergency Room Report ---
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 There was no reports of any vomiting or diarrhea patient denies any fevers Allergies: Coded Allergies: No Known Allergies (Unverified , 06/24/13) Patient History Past Medical History: see triage record Pertinent Family History: none Last Menstrual Period: NA Reviewed Nursing Documentation: PMH: Agreed; PSxH: Agreed Nursing Documentation-PMH Hx Cardiac Problems: No Hx Hypertension: No Hx Diabetes: Yes Hx Cancer: No Hx Gastrointestinal Problems: No Hx Neurological Problems: No Hx Peripheral Neuropathy: Yes - Diabetic Review of Systems All Other Systems: negative except mentioned in HPI Physical Exam Vital Signs Date Time Temp Pulse Resp B/P (MAP) Pulse Ox O2 Delivery O2 Flow Rate FiO2 12/04/17 16:20 98.2 60 16 151/45 90 Room Air 98.2 Sp02 EP Interpretation: reviewed, normal General Appearance: well appearing, no apparent distress Head: normocephalic, atraumatic Eyes: bilateral eye PERRL, bilateral eye EOMI ENT: hearing grossly normal, normal pharynx, TMs + canals normal, uvula midline Neck: full range of motion, supple, no meningismus, no bony tend Respiratory: lungs clear, normal breath sounds, no rhonchi, no respiratory distress, no retraction, no accessory muscle use Cardiovascular #1: normal peripheral pulses, regular rate, rhythm, no edema, no gallop, no JVD, no murmur Gastrointestinal: normal bowel sounds, non tender, soft, no mass, no organomegaly, non-distended, no guarding, no hernia, no pulsatile mass, no rebound Genitourinary: no CVA tenderness Musculoskeletal: normal inspection Neurologic: oriented x3, responsive, sorter upholstery parts III-XII nml as tested, motor strength/ tone normal, sensory intact Psychiatric: mood/affect normal Skin: normal color, no rash, warm/dry, palpation normal Lymphatic: normal inspection, no adenopathy Medical Decision Making Diagnostic Impression: Primary Impression: hyperglycemia ER Course Given the patient's presentation and initial reports of elevated glucose Blood work is initiated for further evaluation of acidosis And other possible infectious pathology Patient's kidney function and other electrolyte are appropriate after further IV hydration repeat glucose reveals Accu-Chek of 260 this is appropriate decrease patient does not appear acidotic Is recommended to check her glucose to times a day and follow-up with primary physician will return with any changes Labs Test 12/04/17 16:40 White Blood Count 8.5 K/UL (4.8-10.8) Red Blood Count 5.35 M/UL (4.20-5.40) Hemoglobin 15.5 G/DL (12.0-16.0) Hematocrit 45.4 % (37.0-47.0) Mean Corpuscular Volume 85 FL (80-99) Mean Corpuscular Hemoglobin 29.0 PG (27.0-31.0) Mean Corpuscular Hemoglobin Concent 34.1 G/DL (32.0-36.0) Red Cell Distribution Width 12.6 % (11.6-14.8) Platelet Count 165 K/UL (150-450) Mean Platelet Volume 9.7 FL (6.5-10.1) Neutrophils (%) (Auto) 32.7 % (45.0-75.0) Lymphocytes (%) (Auto) 54.3 % (20.0-45.0) Monocytes (%) (Auto) 9.4 % (1.0-10.0) Eosinophils (%) (Auto) 2.0 % (0.0-3.0) Basophils (%) (Auto) 1.7 % (0.0-2.0) Sodium Level 135 MMOL/L (136-145) Potassium Level 3.9 MMOL/L (3.5-5.1) Chloride Level 101 MMOL/L (98-107) Carbon Dioxide Level 22 MMOL/L (21-32) Anion Gap 12 mmol/L (5-15) Blood Urea Nitrogen 23 mg/dL (7-18) Creatinine 0.9 MG/DL (0.55-1.30) Estimat Glomerular Filtration Rate mL/min (>60) Glucose Level 414 MG/DL (74-106) Calcium Level 10.1 MG/DL (8.5-10.1) Total Bilirubin 0.4 MG/DL (0.2-1.0) Aspartate Amino Transf (AST/SGOT) 14 U/L (15-37) Alanine Aminotransferase (ALT/SGPT) 23 U/L (12-78) Alkaline Phosphatase 156 U/L (46-116) Total Protein 8.2 G/DL (6.4-8.2) Albumin 3.8 G/DL (3.4-5.0) Globulin 4.4 g/dL Albumin/Globulin Ratio 0.9 (1.0-2.7) Last Vital Signs Date Time Temp Pulse Resp B/P (MAP) Pulse Ox O2 Delivery O2 Flow Rate FiO2 12/04/17 16:53 98.2 85 16 151/45 90 Room Air 98.2 Status: improved Disposition: HOME, SELF-CARE Condition: Improved Patient Instructions: Hyperglycemia, [id number] Additional Instructions: Your blood glucose has decreased to 260. Please check your glucose 2 times a day Continue on her regular regimen And follow-up with her primary physician in the next 3 days Donald Gonzales DO Dec 04, 2017 18:02
[2017-12-04 18:07] VITALS: BP 151/45
== END 2017-12-04 18:15 | disposition home or self-care (01) ==
LOC: EMR 17:00
DX: E11.65 Type 2 diabetes mellitus with hyperglycemia (principal); I10 Essential (primary) hypertension; E11.40 Type 2 diabetes mellitus with diabetic neuropathy, unspecified
CPT/HCPCS: 36415; 80053; 82962; 85025; 96360; 96374; 99283